=== PATIENT | female | born 1980 | race Caucasian/White ===

== ENCOUNTER 2019-03-31 07:17 | Outpatient (CLI) | payer OTHER ==
--- NOTE | 2019-03-31 12:04 | Ultrasound Report ---
Reason: UPPER ABDOMINAL PAIN Procedure Date: 03/31/2019 Accession Number: [id number] / [id number] Procedure: US - Abdomen Complete CPT Code: FULL RESULT: EXAM: ABDOMEN ULTRASOUND EXAM DATE: 03/31/2019 11:28 AM. CLINICAL HISTORY: Upper abdominal pain. COMPARISON: None. TECHNIQUE: Real-time scanning was performed with static images obtained. FINDINGS: Liver: Diffusely echogenic liver parenchyma most consistent with steatosis. No focal abnormality or hepatomegaly. Vertical span is 15 cm. Main portal vein flow: Hepatopetal. Gallbladder: Normal. No stones, wall thickening, or sonographic Navarro's sign. Biliary System: Common bile duct measures 4 mm. No intrahepatic or extrahepatic ductal dilatation. Pancreas: Visualized portion is unremarkable. Kidneys: Right: Vertical span is 11.8 cm longitudinally. Normal. No contour-deforming mass, stones, or hydronephrosis. Left: Vertical span is 12.8 cm longitudinally. Normal. No contour-deforming mass, stones, or hydronephrosis. Spleen: 11.3 x 3.2 x 11.4 cm. Normal in size and echotexture. Aorta and Inferior Vena Cava: Unremarkable. Other: None. IMPRESSION: 1. Diffusely echogenic liver without focal mass or hepatosplenomegaly. This is most commonly associated with steatosis. 2. Otherwise negative examination. RADIA
== END 2019-03-31 07:18 | disposition home or self-care (01) ==
LOC: DI 07:17
PROVIDERS: ATTEND Nurse Practitioner Family
DX: R10.10 Upper abdominal pain, unspecified (principal); K76.0 Fatty (change of) liver, not elsewhere classified
CPT/HCPCS: 76700

== ENCOUNTER 2019-04-11 13:26 | Outpatient (CLI) | payer OTHER ==
--- NOTE | 2019-04-12 09:13 | Mammography Report ---
Reason: ROUTINE MAMMO Procedure Date: 04/11/2019 Accession Number: [id number] / [id number] Procedure: MGS - Screening Mammo Dig Bilat CPT Code: FULL RESULT: EXAM: Screening Mammo Dig Bilat DATE: 04/11/2019 1:46 PM CLINICAL HISTORY: Baseline mammogram. Screening encounter. TECHNIQUE: (B) - Bilateral CC, laterally exaggerated CC, MLO views were obtained. COMPARISON: None PARENCHYMAL PATTERN: (D) - The breast(s) demonstrate(s) heterogeneously dense fibroglandular parenchyma. FINDINGS: There are no suspicious masses, calcifications, or areas of distortion. IMPRESSION: Negative examination. BI-RADS category 1. RECOMMENDATION: (ANNUAL) - Recommend routine annual screening mammography. BI-RADS CATEGORY: (1) - Negative. STANDARD QUALIFYING STATEMENTS: 1. This examination was reviewed with the aid of Computer-Aided Detection (CAD). 2. A negative or benign imaging report should not preclude biopsy if clinically suspicious findings are present. 3. Dense breasts may obscure an underlying neoplasm. 4. This examination was reviewed without the aid of 3D breast imaging (tomosynthesis).
== END 2019-04-11 13:27 | disposition home or self-care (01) ==
LOC: DI.S 13:26
PROVIDERS: ATTEND Family Medicine
DX: Z12.31 Encounter for screening mammogram for malignant neoplasm of breast (principal)
CPT/HCPCS: 77067

== ENCOUNTER 2019-06-17 12:13 | Outpatient (CLI) | payer OTHER ==
[2019-06-17] MEDS ORDERED: SINCALIDE 5 MCG VIAL ONE (14:42)
--- NOTE | 2019-06-19 13:27 | Nuclear Medicine Report ---
Reason: EPIGASTRIC PAIN Procedure Date: 06/17/2019 Accession Number: [id number] / [id number] Procedure: NM - Hepatobiliary HIDA w/ Rx CPT Code: Final Report FULL RESULT: EXAM: HEPATOBILIARY SCAN WITH CCK/KINEVAC ADMINISTRATION. EXAM DATE: 06/17/2019 04:02 PM. CLINICAL HISTORY: Epigastric pain. COMPARISON: ABDOMEN COMPLETE 03/31/2019 8:14 AM. TECHNIQUE: Following the intravenous administration of 4.8 mCi of Tc99m Mebrofenin, a hepatobiliary scan was done centered on the liver and gallbladder in multiple sequential images and projections. Following the intravenous administration of 1.9 mcg of CCK/ Kinevac over the course of approximately 60 minutes, dynamic imaging was done and the gallbladder ejection fraction was calculated. FINDINGS: Normal extraction of tracer from the blood pool indicating normal hepatocellular function. The liver size and shape is grossly within normal limits. There is activity visualized within the bile ducts, gallbladder, and small bowel during the first hour. With CCK administration, the gallbladder demonstrates an effective contraction. The gallbladder ejection fraction is calculated to be 75%, well above the lower limit of normal of 38% for a 60-minute injection. The patient did report minor symptoms after CCK administration. No evidence of enteric reflux into the stomach. No significant collection of tracer remaining in the common bile duct by the end of the study. IMPRESSION: 1. Patent cystic duct. 2. Patent common bile duct. 3. Negative for acute or chronic cholecystitis. 4. No enterogastric bile reflux. 5. Gallbladder ejection fraction of 75%. RADIA
== END 2019-06-17 12:14 | disposition home or self-care (01) ==
LOC: DI 12:13
PROVIDERS: ATTEND Student in an Organized Health Care Education/Training Program
DX: R10.13 Epigastric pain (principal); R11.0 Nausea
CPT/HCPCS: 78227

== ENCOUNTER 2020-01-13 16:46 | Emergency (ER) | payer OTHER ==
--- NOTE | 2020-01-13 17:25 | XRAY Report ---
PROCEDURE: Chest 1 View X-Ray INDICATIONS: Chest pain TECHNIQUE: One view of the chest was acquired. COMPARISON: None FINDINGS: Surgical changes and devices: None. Lungs and pleura: No pleural effusions or pneumothorax. Lungs are clear. Mediastinum: Mediastinal contours appear normal. Heart size is normal. Bones and chest wall: No suspicious bony lesions. Overlying soft tissues appear unremarkable. IMPRESSION: No acute pulmonary process. Reviewed by: Nan Cm MD on 01/13/2020 5:23 PM PDT Approved by: Nan Cm MD on 01/13/2020 5:23 PM PDT Station ID: [id number]
[2020-01-13 17:29] LABS: BASOPHILS % (AUTO) 0.3 %; EOSINOPHILS # (AUTO) 0.1 10^3/uL (0.0-0.7); EOSINOPHILS % (AUTO) 1.5 %; HGB - HEMOGLOBIN 14.9 g/dL (12.0-16.0); LYMPHOCYTES # (AUTO) 2.1 10^3/uL (1.5-3.5); LYMPHOCYTES % (AUTO) 28.9 %; MEAN CORPUSCULAR HEMOGLOBIN 30.8 pg (27.0-31.0); MEAN CORPUSCULAR HGB CONC 35.1 g/dL (32.0-36.0); MEAN CORPUSCULAR VOLUME 87.6 fL (81.0-99.0); MEAN PLATELET VOLUME 8.8 fL (7.9-10.8); MONOCYTES # (AUTO) 0.5 10^3/uL (0.0-1.0); MONOCYTES % (AUTO) 7.1 %; NEUTROPHILS # (AUTO) 4.6 10^3/uL (1.5-6.6); NEUTROPHILS % (AUTO) 61.9 %; PLT - PLATELET COUNT 396 10^3/uL (130-450); RED BLOOD COUNT 4.84 10^6/uL (4.20-5.40); RED CELL DISTRIBUTION WIDTH 12.6 % (12.0-15.0); WHITE BLOOD COUNT 7.4 x10^3/uL (4.8-10.8)
[2020-01-13 17:40] LABS: ALBUMIN 4.5 g/dL (3.2-5.5); ALBUMIN/GLOBULIN RATIO 1.5 (1.0-2.2); BILIRUBIN,TOTAL 0.6 mg/dL (0.2-1.0); CALCIUM 9.1 mg/dL (8.5-10.3); CREATININE 0.7 mg/dL (0.4-1.0); TOTAL PROTEIN 7.5 g/dL (6.7-8.2)
[2020-01-13 19:01] VITALS: BP 155/99
--- NOTE | 2020-01-13 19:01 | ED Physician Documentation ---
History of Present Illness - Stated complaint Stated Complaint: RAPID HEART RATE - Chief complaint Chief Complaint: Cardiac - History obtained from History obtained from: Patient - History of Present Illness Timing: How many days ago (3-4) Pain level max: 1 Pain level now: 0 - Additonal information Additional information: 39-year-old female with palpitations for the past several days. Occurs 3-4 times a day. Asymptomatic currently. No dyspnea. Feels like her heart is skipping a beat. Nothing makes it better or worse. She does smoke. She drinks caffeine as well. Last for a second or 2 at a time. She is also noticed that her feet have been swelling more than usual. No difficulty breathing. Review of Systems Ten Systems: 10 systems reviewed and negative Constitutional: denies: Fever, Chills Ears: denies: Ear pain Nose: denies: Rhinorrhea / runny nose, Congestion Throat: denies: Sore throat Cardiac: reports: Palpitations Respiratory: denies: Dyspnea, Cough, Wheezing GI: denies: Abdominal Pain, Nausea, Vomiting, Constipation, Diarrhea Skin: denies: Rash Musculoskeletal: denies: Neck pain, Back pain Neurologic: denies: Headache PD PAST MEDICAL HISTORY - Past Medical History Past Medical History: No - Past Surgical History Past Surgical History: No - Allergies Allergies/Adverse Reactions: Allergies Allergy/AdvReac Type Severity Reaction Status Date / Time shellfish derived Allergy Anaphylaxis Verified 01/13/20 17:01 - Living Situation Living Situation: reports: With family Living Arrangement: reports: At home - Social History Does the pt smoke?: Yes Does the pt drink ETOH?: Yes Does the pt have substance abuse?: No - Family History Family history: reports: Non contributory PD ED PE NORMAL - Vitals Vital signs reviewed: Yes - General General: Alert and oriented X 3, No acute distress, Well developed/nourished - HEENT HEENT: PERRL, Moist mucous membranes, Pharynx benign - Neck Neck: Supple, no meningeal sign - Cardiac Cardiac: RRR, No murmur, Strong equal pulses - Respiratory Respiratory: No respiratory distress, Clear bilaterally - Abdomen Abdomen: Soft, Non tender, Non distended - Derm Derm: Warm and dry - Extremities Extremities: No calf tenderness / cord, Other (Trace edema bilaterally) - Neuro Neuro: Alert and oriented X 3 - Psych Psych: Normal mood, Normal affect Results - Vitals Vitals: Vital Signs - 24 hr 01/13/20 01/13/20 17:02 18:56 Temperature 36.6 C 37.3 C Heart Rate 80 72 Respiratory 16 16 Rate Blood Pressure 152/100 H 155/99 H O2 Saturation 99 100 Oxygen O2 Source Room air - EKG (time done) 1657 Rate: Rate (enter#) (80) Rhythm: NSR [place]: Normal Intervals: Normal [place] QRS: Normal Ischemia: Normal ST segments - Labs Labs: Laboratory Tests 01/13/20 01/13/20 01/13/20 17:22 17:22 17:22 WBC 7.4 RBC 4.84 Hgb 14.9 Hct 42.4 MCV 87.6 MCH 30.8 MCHC 35.1 RDW 12.6 Plt Count 396 MPV 8.8 Neut # (Auto) 4.6 Lymph # (Auto) 2.1 [place] # (Auto) 0.5 Eos # (Auto) 0.1 Baso # (Auto) 0.0 Absolute Nucleated RBC 0.00 Nucleated RBC % 0.0 Sodium 139 Potassium 3.3 L Chloride 100 L Carbon Dioxide 28 Anion Gap 11.0 BUN 11 Creatinine 0.7 Estimated GFR (MDRD) 92 Glucose 100 Calcium 9.1 Total Bilirubin 0.6 AST 16 ALT 17 Alkaline Phosphatase 45 Troponin I High Sens < 2.3 L Total Protein 7.5 Albumin 4.5 Globulin 3.0 Albumin/Globulin Ratio 1.5 Lipase 38 - Rads (name of study) Chest x-ray Radiology: Prelim report reviewed, EMP read contemporaneously, See rad report (No acute disease) PD MEDICAL DECISION MAKING - ED course Complexity details: reviewed results, re-evaluated patient, considered differential (No ST elevation CA, no aortic dissection, no PE, no tension pneumothorax, no aortic aneurysmNo ST elevation CA, no aortic dissection, no PE, no tension pneumothorax, no aortic aneurysm), d/w patient ED course: 39-year-old female presents to the emergency department with palpitations. It sounds like she is having PVCs. Asymptomatic here. No acute findings on EKG or telemetry. No significant lab abnormalities. No evidence of pulmonary embolus. No evidence of acute coronary syndrome. We will have her follow-up with her doctor for further care. No evidence of congestive heart failure. Patient counseled regarding signs and symptoms for which I believe and urgent re- evaluation would be necessary. Patient with good understanding of and agreement to plan and is comfortable going home at this time This document was made in part using voice recognition software. While efforts are made to proofread this document, sound alike and grammatical errors may occur. Departure - Departure Disposition: 01 Home, Self Care Clinical Impression: Palpitations, Premature ventricular complex Condition: Good Instructions: Premature Ventricular Contract About, Premature Ventricular Contract Tx, ED Palpitations Follow-Up: Chuck Lang MD [Primary Care Provider] - Comments: It sounds like you are having premature ventricular contractions today. These are generally harmless. Your doctor will likely want to confirm this with a heart monitor that you wear to evaluate if this is the cause of your symptoms. Avoid caffeine, stress, smoking. Return if you worsen Discharge Date/Time: 01/13/20 19:13
== END 2020-01-13 19:13 | disposition home or self-care (01) ==
LOC: ED 16:46
DX: R00.2 Palpitations (principal); I49.3 Ventricular premature depolarization; F17.200 Nicotine dependence, unspecified, uncomplicated
CPT/HCPCS: 36415; 71045; 80053; 83690; 84484; 85025; 93005; 99284; 99285

== ENCOUNTER 2020-04-08 12:19 | Emergency (ER) | payer OTHER ==
[2020-04-08] MEDS ORDERED: SULFAMETH/TRIMETH DS 800/160 MG TABLET PO STA (12:46)
--- NOTE | 2020-04-08 12:53 | ED Physician Documentation ---
History of Present Illness - Stated complaint Stated Complaint: LT EAR PX - Chief complaint Chief Complaint: Heent - History obtained from History obtained from: Patient - History of Present Illness Timing: Yesterday Pain level max: 4 Pain level now: 3 Improved by: nothing Worsened by: palpation - Additonal information Additional information: 39-year-old female presents to the emergency department stating that her left ear started hurting yesterday. Has a history of recurrent cellulitis in this area. She states that in the past it has been MRSA and been relatively quick moving. Therefore she came in for antibiotics. She has had MRIs in the past that showed the infection moving towards her jaw. She is concerned about recurrent infection. No fevers. No chills. Nothing makes it better or worse. 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 04/08/20 Sulfamethox/Trimeth 800/160 1 each PO BID #14 tablet 04/08/20 [Bactrim Ds 800/160] - Allergies Allergies/Adverse Reactions: Allergies Allergy/AdvReac Type Severity Reaction Status Date / Time shellfish derived Allergy Anaphylaxis Verified 04/08/20 12:28 - Social History Does the pt smoke?: Yes Smoking Status: Current every day smoker Does the pt drink ETOH?: Yes Does the pt have substance abuse?: No - POLST Patient has POLST: No PD ED PE NORMAL - Vitals Vital signs reviewed: Yes - General General: Alert and oriented X 3, No acute distress - HEENT HEENT: Moist mucous membranes, Other (Right ear is normal. Left ear is swollen around the tragus. No ear canal swelling. Normal TM.) - Neck Neck: Supple, no meningeal sign, No adenopathy - Cardiac Cardiac: RRR - Respiratory Respiratory: No respiratory distress, Clear bilaterally - Derm Derm: Warm and dry - Neuro Neuro: Alert and oriented X 3 - Psych Psych: Normal mood, Normal affect Results - Vitals Vitals: Vital Signs - 24 hr 04/08/20 04/08/20 12:28 12:32 Temperature 36.6 C 36.6 C Heart Rate 68 68 Respiratory 14 14 Rate Blood Pressure 149/95 H 149/95 H O2 Saturation 100 100 Oxygen O2 Source Room air PD MEDICAL DECISION MAKING - ED course Complexity details: considered differential, d/w patient ED course: 39-year-old female presents to the emergency department with what appears to be cellulitis of the left tragus. She has been placed on oral antibiotics in the past for this. She states that they have treated her for MRSA several times. She usually uses an ointment as well. Will prescribe Bactrim and mupirocin. Patient counseled regarding signs and symptoms for which I believe and urgent re-evaluation would be necessary. Patient with good understanding of and agreement to plan and is comfortable going home at this time This document was made in part using voice recognition software. While efforts are made to proofread this document, sound alike and grammatical errors may occur. Departure - Departure Disposition: 01 Home, Self Care Clinical Impression: Cellulitis Qualifiers: Site of cellulitis: face Qualified Code(s): L03.211 - Cellulitis of face Condition: Good Instructions: ED Infec Skin Cellulitis Follow-Up: Chuck Lang MD [Primary Care Provider] - Within 1 week Prescriptions: Sulfamethox/Trimeth 800/160 [Bactrim Ds 800/160] 1 each PO BID #14 tablet Mupirocin Calcium [Mupirocin] 1 applic TP BID #1 cream..g. Comments: Take all antibiotics until gone. Return if you worsen. Follow-up with your doctor for further care.
[2020-04-08 12:57] VITALS: BP 146/92
== END 2020-04-08 12:56 | disposition home or self-care (01) ==
LOC: ED 12:19
DX: H60.12 Cellulitis of left external ear (principal); Z86.14 Personal history of Methicillin resistant Staphylococcus aureus infection; F17.200 Nicotine dependence, unspecified, uncomplicated
CPT/HCPCS: 99282; 99284; A9270